=== PATIENT | male | born 1995 | race African-American/Black ===

== ENCOUNTER 2022-08-10 20:35 | Inpatient (IN) | payer OTHER, SELFPAY ==
--- NOTE | 2022-08-10 20:38 | ED.PSYCH ---
HPI - Psych General Chief Complaint: Psychiatric Symptoms Stated Complaint: Section 12/Delusional Time Seen by Provider: 08/10/22 20:38 Source: patient, EMS and police Mode of arrival: EMS Limitations: other (Manic) History of Present Illness HPI Narrative: 27-year-old male presents via EMS in police escort handcuffed to the stretcher on section 12 for homicidal ideations and statements towards his father. MD complaint: homicidal ideation, anxiety and other (Jade) Onset (ago): unknown Context: not taking psychiatric medications Associated psychiatric symptoms: homicidal ideation and delusions Associated symptoms: denies other symptoms Treatments prior to arrival: placed on mental health hold Related Data Home Medications Medication Instructions Recorded Confirmed No Known Home Meds 08/10/22 08/10/22 Allergies Allergy/AdvReac Type Severity Reaction Status Date / Time No Known Allergies Allergy Unverified 03/19/20 19:00 [No Known Allergies*] Review of Systems Review of Systems: Yes Unobtainable due to mental status (Patient noncompliant) [facility] Past Medical History Attestation statement: The following information was validated with the patient. Source: old records reviewed Social History Social History Advance Directives: No Healthcare Proxy: No Guardian: No Physical Exam Vital Signs: Vital Signs: Last Vital Signs Temp 98.0 F 08/10/22 23:37 Pulse 80 08/10/22 23:37 Resp 17 08/10/22 23:37 BP 131/84 08/10/22 23:37 Pulse Ox 97 08/10/22 23:37 O2 Del Method 08/10/22 23:37 BMI result Body Mass Index 19.8 Appearance: Alert. Oriented X3. Manic. Eyes: Pupils equal, round and reactive to light. Neck: Normal inspection. Neck supple. CVS: Normal heart rate and rhythm. Pulses normal. Respiratory: No respiratory distress. Skin: Skin warm and dry. Normal skin color. Normal skin turgor. Extremities: Gait well-balanced well coordinated. Neuro: No motor deficit. No sensory deficit. Cranial nerves 2-12 intact. Course Course Course Narrative: 27-year-old male presents via EMS in police escort handcuffed the stretcher for homicidal ideation. Patient's parents called police because they felt threatened, the details of the threatening behavior are not clear. Patient is delusional, states that he has 16 different black belts, is paranoid, is manic, requires multiple redirections to stay on task. Requires verbal encouragement by staff, police officers, and this SUEDING MACHINE OPERATOR to change his clothing over. Patient is posturing, was diagnosed with schizophrenia in 2018. Does not take any medications. Patient was on risperidone but stopped taking it on his own regard. Patient's family is very concerned about this patient's behavior, has had multiple police complaints about loud disruptive behavior. 2 days ago patient was in a car [place], was chased for multiple miles or speeding, he has a pending court date for major traffic infractions. Will order labs, crisis consult. 03:26 has an elevated white count of 11.6 which I feel is reactive. Other labs are unremarkable. COVID is negative. Patient is medically cleared. Patient is a Section 12 bed search. Medical Decision Making Differential Diagnosis Differential Diagnoses: The differential diagnosis associated with the presentation includes Jade, psychosis Admission/Observation Consideration of admission/observation: Escalation of care including admission/observation considered Psychiatric admission highly considered for this patient Consult Healthcare Provider Management of the patient was discussed with: Behavioral Health Provider Lab Data [facility] Lab Attestation statement: I reviewed the patient's lab results. 08/10/22 22:31 08/10/22 22:31 Labs: Lab Results 08/10/22 08/10/22 08/10/22 Range/Units 20:50 21:42 22:31 WBC 11.6 H (4.8-10.8) X10*3/uL RBC 4.84 (4.60-5.80) X10*6/uL Hgb 14.1 (14.0-18.0) g/dl Hct 41.0 L (42.0-52.0) % MCV 84.7 (80.0-98.0) fL MCH 29.1 (27.0-33.0) pg MCHC 34.4 (31.0-36.0) g/dl RDW 13.3 (11.0-16.0) % Plt Count 245 (160-400) X10*3/uL MPV 8.7 L (9.4-12.4) fL Immature Gran % (Auto) 0.3 (0.0-0.4) % Neut % (Auto) 76.6 H (45-73) % Lymph % (Auto) 16.8 L (20-40) % [place] % (Auto) 3.4 (2-11) % Eos % (Auto) 2.6 (0-4) % Baso % (Auto) 0.3 (0-2) % Lymph # (Auto) 2.0 (1.2-4.9) X10*3/uL [place] # (Auto) 0.4 (0.1-1.2) X10*3/uL Eos # (Auto) 0.3 (0.0-0.4) X10*3/uL Baso # (Auto) 0.0 (0.0-0.2) X10*3/uL Abs Immat Gran (auto) 0.03 (0.00-0.03) X10*3/uL Absolute Neuts (auto) 8.9 H (2.0-8.3) x10*3/uL Absolute Nucleated RBC 0.000 (0.0-0.012) X10*3/uL Nucleated RBC % (auto) 0.0 (0.0-0.2) /100WBC Sodium (135-145) mmol/L Potassium (3.3-5.1) mmol/L Chloride (96-108) mmol/L Carbon Dioxide (22-29) mmol/L Anion Gap (12-20) BUN (9-16) mg/dL Creatinine (0.5-1.4) mg/dL Estim Creat Clear Calc Estimated GFR Random Glucose (60-115) mg/dL Calcium (8.4-10.2) mg/dL Total Bilirubin (0.0-1.0) mg/dL AST (5-37) U/L ALT (0-40) U/L Alkaline Phosphatase (39-117) U/L Total Protein (6.5-8.0) g/dL Albumin (3.5-5.0) g/dL Urine Opiates Screen Not Detected (Not Detect) Urine Fentanyl Screen Not Detected (Not Detect) Ur Barbiturates Screen Not Detected (Not Detect) Ur Phencyclidine Scrn Not Detected (Not Detect) Ur Amphetamines Screen Not Detected (Not Detect) U Benzodiazepines Scrn Not Detected (Not Detect) Urine Cocaine Screen Not Detected (Not Detect) U Marijuana (THC) Screen Not Detected (Not Detect) Ethyl Alcohol mg/dL COVID-19 ([facility]) Negative (Negative) COVID-19 Clin Com See Note 08/10/22 08/10/22 Range/Units 22:31 22:31 WBC (4.8-10.8) X10*3/uL RBC (4.60-5.80) X10*6/uL Hgb (14.0-18.0) g/dl Hct (42.0-52.0) % MCV (80.0-98.0) fL MCH (27.0-33.0) pg MCHC (31.0-36.0) g/dl RDW (11.0-16.0) % Plt Count (160-400) X10*3/uL MPV (9.4-12.4) fL Immature Gran % (Auto) (0.0-0.4) % Neut % (Auto) (45-73) % Lymph % (Auto) (20-40) % [place] % (Auto) (2-11) % Eos % (Auto) (0-4) % Baso % (Auto) (0-2) % Lymph # (Auto) (1.2-4.9) X10*3/uL [place] # (Auto) (0.1-1.2) X10*3/uL Eos # (Auto) (0.0-0.4) X10*3/uL Baso # (Auto) (0.0-0.2) X10*3/uL Abs Immat Gran (auto) (0.00-0.03) X10*3/uL Absolute Neuts (auto) (2.0-8.3) x10*3/uL Absolute Nucleated RBC (0.0-0.012) X10*3/uL Nucleated RBC % (auto) (0.0-0.2) /100WBC Sodium 141 (135-145) mmol/L Potassium 4.0 (3.3-5.1) mmol/L Chloride 106 (96-108) mmol/L Carbon Dioxide 21 L (22-29) mmol/L Anion Gap 18 (12-20) BUN 11 (9-16) mg/dL Creatinine 0.91 (0.5-1.4) mg/dL Estim Creat Clear Calc 102.5 Estimated GFR > 60 Random Glucose 92 (60-115) mg/dL Calcium 9.2 (8.4-10.2) mg/dL Total Bilirubin 0.4 (0.0-1.0) mg/dL AST 19 (5-37) U/L ALT 17 (0-40) U/L Alkaline Phosphatase 70 (39-117) U/L Total Protein 7.1 (6.5-8.0) g/dL Albumin 4.4 (3.5-5.0) g/dL Urine Opiates Screen (Not Detect) Urine Fentanyl Screen (Not Detect) Ur Barbiturates Screen (Not Detect) Ur Phencyclidine Scrn (Not Detect) Ur Amphetamines Screen (Not Detect) U Benzodiazepines Scrn (Not Detect) Urine Cocaine Screen (Not Detect) U Marijuana (THC) Screen (Not Detect) Ethyl Alcohol < 10 mg/dL COVID-19 ([facility]) (Negative) COVID-19 Clin Com External Record Review No prior records at this facility for this patient Social Determinants Patient?s care significantly limited by Social Determinants of Health including: Other Social Determinant of Health Discharge Plan Discharge Clinical Impression: Acute psychosis, Chronic schizophrenia Patient Disposition: Still a Patient Prescriptions: No Action No Known Home Meds Interventions: [place]-Suicide Risk Severity Scale Last Done: 08/10/22 20:45
[2022-08-10 20:40] VITALS: BMI 19.8
[2022-08-10 20:57] VITALS: BP 132/87; PULSE 88; RESP 16; TEMP 37.3; O2SAT 99
[2022-08-10 21:14] LABS: COVID-19 Test Negative (Negative); IDNOW Serial# 6674DD1D
--- NOTE | 2022-08-10 22:10 | MHC.EDTECH ---
pt refused blood draw he states he hates needles and dont like to be drawn
[2022-08-10 22:13] LABS: Amphetamine Screen Urine Not Detected (Not Detect); Barbiturates, Urine Not Detected (Not Detect); Benzodiazepines Screen Urine Not Detected (Not Detect); Cannabinoid Screen Urine Not Detected (Not Detect); Cocaine Screen Urine Not Detected (Not Detect); Fentanyl, urine Not Detected (Not Detect); Opiate Screen Urine Not Detected (Not Detect); Phencyclidine Screen Urine Not Detected (Not Detect)
[2022-08-10 22:36] LABS: MANUAL DIFF FLAG NO
[2022-08-10 22:37] LABS: Basophils Percent Auto 0.3 % (0-2); Eosinophils Absolute Auto 0.3 X10*3/uL (0.0-0.4); Eosinophils Percent Auto 2.6 % (0-4); Hemoglobin 14.1 g/dl (14.0-18.0); Imm Gran Abs Auto 0.03 X10*3/uL (0.00-0.03); Imm Gran Pct Auto 0.3 % (0.0-0.4); Lymphocytes Percent Auto 16.8 % (20-40); Mean Corpuscular HGB Conc 34.4 g/dl (31.0-36.0); Mean Corpuscular Hemoglobin 29.1 pg (27.0-33.0); Mean Corpuscular Volume 84.7 fL (80.0-98.0); Mean Platelet Volume 8.7 fL (9.4-12.4); Monocytes Absolute Auto 0.4 X10*3/uL (0.1-1.2); Monocytes Percent Auto 3.4 % (2-11); Neutrophils Absolute Auto 8.9 x10*3/uL (2.0-8.3); Neutrophils Percent Auto 76.6 % (45-73); Platelet Count 245 X10*3/uL (160-400); Red Blood Count 4.84 X10*6/uL (4.60-5.80); Red Cell Distribution Width 13.3 % (11.0-16.0); White Blood Count 11.6 X10*3/uL (4.8-10.8)
[2022-08-10 23:12] LABS: Alanine Aminotransferase 17 U/L (0-40); Albumin Level 4.4 g/dL (3.5-5.0); Alkaline Phosphatase 70 U/L (39-117); Anion Gap 18 (12-20); Aspartate Amino Transferase 19 U/L (5-37); Bilirubin Total 0.4 mg/dL (0.0-1.0); Blood Urea Nitrogen 11 mg/dL (9-16); Calcium 9.2 mg/dL (8.4-10.2); Carbon Dioxide 21 mmol/L (22-29); Chloride 106 mmol/L (96-108); Creatinine Clr Calc Pharmacy 102.5; Estimated Glomerular Filt Rate > 60; Ethanol < 10 mg/dL; Glucose Random 92 mg/dL (60-115); Sodium 141 mmol/L (135-145); Total Protein 7.1 g/dL (6.5-8.0)
[2022-08-10 23:37] VITALS: BP 131/84; PULSE 80; RESP 17; TEMP 36.7; O2SAT 97
--- NOTE | 2022-08-11 07:04 | PC.NURSE ---
Patient slept through the night, no distress observed/reported, behavior hyper-verbal grandiose but non concerning, thought content paranoid delusional, med rec completed/patient is currently not on any medication, per family patient has been off his medication since 2017, disposition per care team section 12 inpatient bed search, VSS, will continue to monitor.
[2022-08-11 08:10] VITALS: BP 131/82; PULSE 71; RESP 16; TEMP 37
--- NOTE | 2022-08-11 08:31 | MHC.EDTECH ---
late entry: pt refused breakfast at this time. states that hospital food is gross . rn aware
--- NOTE | 2022-08-11 08:32 | PC.NURSE ---
Hyperverbal, disorganized thought process. Manic in nature. tangential. Endorses delusions of super hero- per pt [place] character Gela Baker is base on his life. Pt states i'm not crazy but if I was I would attack all of you, but i'm not crazy so you don't have to worry.
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
--- NOTE | 2022-08-11 10:53 | PC.NURSE ---
Care team at bedside for MSU
--- NOTE | 2022-08-11 12:27 | PC.NURSE ---
Pt's father Michele ([phone]) called to speak to care team/obtain status update. Call transferred to care team.
[2022-08-11 17:06] VITALS: BP 152/74; PULSE 65; RESP 18; TEMP 36.8; O2SAT 96
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
--- NOTE | 2022-08-11 18:58 | PC.NURSE ---
pT SIGNED A 3-DAY ON 08/11/22, UP ON Monday08/16/22.
[2022-08-11 20:30] VITALS: BP 123/69; PULSE 70; RESP 18; TEMP 36.7; O2SAT 96
[2022-08-12 06:00] VITALS: RESP 16
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
[2022-08-12 20:44] VITALS: BP 119/74; PULSE 79; TEMP 36.7; O2SAT 100
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
[2022-08-13 20:36] VITALS: BP 102/61; PULSE 88; TEMP 37.1; O2SAT 99
[2022-08-14 08:07] VITALS: BP 99/49; PULSE 63; TEMP 36.7; O2SAT 100
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
[2022-08-14 22:17] VITALS: BP 129/94; PULSE 88; RESP 18; TEMP 36.6; O2SAT 96
[2022-08-15 08:00] VITALS: BP 121/63; PULSE 84; TEMP 36.3; O2SAT 100
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
[2022-08-15 20:45] VITALS: PULSE 76; RESP 18; TEMP 36.7; O2SAT 98
[2022-08-16 06:00] VITALS: RESP 18
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
[2022-08-16] MEDS: Paliperidone ER 3 MG TAB.ER.24 PO (13:17)
--- NOTE | 2022-08-16 13:33 | PC.NURSE ---
Patient took PO invega per Doctors orders. Patient stated I am only taking these to get out of here. I am not taking them when I leave
[2022-08-16 20:50] VITALS: BP 98/55; PULSE 92; RESP 18; TEMP 36.6; O2SAT 99
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
[2022-08-17] MEDS: Paliperidone ER 3 MG TAB.ER.24 PO (09:36)
[2022-08-17 10:47] VITALS: PULSE 100; RESP 18; TEMP 36.9; O2SAT 100
[2022-08-17 22:00] VITALS: BP 101/60; PULSE 68; TEMP 36.6; O2SAT 99
[2022-08-17] MEDS: Lidocaine HCl 4 % Topical 50 ML SOLUTION 1 APPL TOPICAL (22:10)
[2022-08-17] MEDS: Paliperidone Palmitate 234 MG/1.5 ML SYRINGE IM (22:28)
[2022-08-18 07:00] VITALS: BMI 20.9
[2022-08-18 08:45] VITALS: BP 93/50; PULSE 76; RESP 16; TEMP 36.8; O2SAT 99
[2022-08-18] MEDS: Paliperidone ER 3 MG TAB.ER.24 PO (09:07)
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
[2022-08-18 21:17] VITALS: BP 137/79; PULSE 102; TEMP 36.7; O2SAT 96
[2022-08-18] MEDS: traZODone HCL 50 MG TABLET PO (23:04)
[2022-08-19 08:15] VITALS: BP 99/58; PULSE 80; RESP 16; TEMP 36.7; O2SAT 100
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
[2022-08-19] MEDS: traZODone HCL 50 MG TABLET PO (20:49)
[2022-08-19 20:50] VITALS: BP 135/76; PULSE 95; RESP 18; TEMP 36.4; O2SAT 100
[2022-08-20 08:20] VITALS: BP 150/71; PULSE 88; RESP 20; TEMP 36.6; O2SAT 100
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
[2022-08-20] MEDS: traZODone HCL 50 MG TABLET PO (21:54)
[2022-08-20 21:58] VITALS: BP 136/67; PULSE 93; RESP 18; TEMP 36.3; O2SAT 100
[2022-08-21 08:15] VITALS: BP 134/80; PULSE 97; RESP 20; TEMP 36.5; O2SAT 100
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
[2022-08-21] MEDS: diphenhydrAMINE HCL 25 MG CAPSULE 50 MG PO (13:44)
[2022-08-21] MEDS: HaloperidoL 5 MG TABLET PO (13:44)
[2022-08-21] MEDS: LORazepam 1 MG TABLET 2 MG PO (15:15)
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
[2022-08-22 09:00] VITALS: BP 117/66; PULSE 88; RESP 16; TEMP 36.1; O2SAT 98
[2022-08-22] MEDS: Lidocaine 4 % Cream KIT 1 APPL TOPICAL (10:52)
[2022-08-22] MEDS: Paliperidone Palmitate 156 MG/ML SYRINGE IM (11:02)
--- NOTE | 2022-08-22 12:30 | PC.NURSE ---
Patient easily engaged, full range of affect. Reports he is ready to get out of here . Reports mood is stable, denies depression or anxiety. Denies SI/HI plan or intent. Denies perceptual disturbances, denies A/V hallucinations although observed to be talking to self without obvious stimuli. All appointments reviewed with patient, reports understanding. Discharge medication reviewed with patient, reports understanding, states he is not going to take it therefore it doesn't matter. All belongings taken with patient. Crisis numbers provided to patient. Information regarding walk in clinic reviewed with patient.
== END 2022-08-22 11:20 | disposition home or self-care (01) | DRG 750 ==
LOC: HO.ED 08-11 13:58 → HO.PADLT16 08-11 15:55
PROVIDERS: Nurse Practitioner Family; Admitting Provider Psychiatry & Neurology Psychiatry; Emergency Provider Emergency Medicine Emergency Medical Services; Visit Provider Psychiatry & Neurology Psychiatry
DX: F20.9 Schizophrenia, unspecified (principal); R45.851 Suicidal ideations; R45.850 Homicidal ideations; F60.89 Other specific personality disorders; F43.10 Post-traumatic stress disorder, unspecified; Z20.822 Contact with and (suspected) exposure to COVID-19
CPT/HCPCS: 36415; 80053; 80307; 82077; 85025; 87635; 99285; J2426; S9485